=== PATIENT | female | born 1955 ===

== ENCOUNTER 2018-05-25 15:30 | Emergency (ER) | payer OTHER ==
[2018-05-25 16:09] VITALS: BMI 25.9
--- NOTE | 2018-05-25 16:11 | C.PDOC ---
History Of Present Illness 63 year old female presents to the emergency department with complaints of a "serious headache" and associated dizziness. Patient reports that her headache is waxing and waning, and she has balancing issues as a result. She states that she was seen by Dr. Lane, and was given medication to treat for high cholesterol. Patient also reports numbness and cramping to her fingers and her legs. She denies chest pain, nausea, vomiting, fever, and chills. Time Seen by Provider: 05/25/18 16:08 Chief Complaint (Nursing): Dizziness/Lightheaded History Per: Patient History/Exam Limitations: no limitations Onset/Duration Of Symptoms: Days Current Symptoms Are (Timing): Still Present Past Medical History Reviewed: Historical Data, Nursing Documentation, Vital Signs Vital Signs: Last Vital Signs Temp 98.8 F 05/25/18 15:55 Pulse 77 05/25/18 15:55 Resp 17 05/25/18 15:55 BP 144/83 05/25/18 15:55 Pulse Ox 96 05/25/18 15:55 - Medical History PMH: Arthritis, Back Problems (HERNIATED DISCS), Hypercholesterolemia Surgical History: No Surg Hx Family History: States: No Known Family Hx - Social History Hx Alcohol Use: Yes Hx Substance Use: No - Immunization History Hx Tetanus Toxoid Vaccination: No Hx Influenza Vaccination: No Hx Pneumococcal Vaccination: No Review Of Systems Except As Marked, All Systems Reviewed And Found Negative. Constitutional: Negative for: Fever, Chills Gastrointestinal: Negative for: Nausea, Vomiting Neurological: Positive for: Weakness, Numbness, Headache, Dizziness Physical Exam - Physical Exam Appears: Non-toxic, No Acute Distress Skin: Warm, Dry Head: Atraumatic, Normacephalic Eye(s): bilateral: Normal Inspection, PERRL, EOMI Neck: Normal, Supple Chest: Symmetrical, No Tenderness Cardiovascular: Rhythm Regular, No Murmur Respiratory: No Rales, No Rhonchi, No Wheezing Gastrointestinal/Abdominal: Soft, No Tenderness, No Guarding, No Rebound Extremity: Normal ROM (all extremities), No Tenderness Pulses: Left Dorsalis Pedis: Normal, Right Dorsalis Pedis: Normal Neurological/Psych: Oriented x3, Normal Speech, Normal Cognition, Normal Motor, Normal Sensation, Normal Reflexes ED Course And Treatment - Laboratory Results Result Diagrams: 05/25/18 16:51 05/25/18 16:51 ECG: Interpreted By Me, Viewed By Me ECG Rhythm: Sinus Rhythm ECG Interpretation: Normal Interpretation Of ECG: No STEMI Rate From EC O2 Sat by Pulse Oximetry: 96 (RA) Pulse Ox Interpretation: Normal Medical Decision Making Medical Decision Making: Plan: CT Head EKG CMP TSH CBC Antivert 12.5mg PO Urinalysis EK, NSR, No stemi ~1800 appreciate consult w/ radiologist: reccomends CTA and MRI for w/u of inflammatory changes ?MS. CTA ordered 1899 Pt notes she would to think about getting a CTA due to insurance issue. I endorsed possibility of permanent and or disability. She notes understanding of potential and or disability if she does not get further studies done. She notes she would like to think about it more though. 0 squams in urine and pt w/ out dysuria, abd pain or flank pain or urgency / frequency: asymptomatic bacturia, no indication for rx at this time given asymptomatic and contaminated sample. Pt endorsed she does not want to stay for CTA OR MRI OR further workup. I endorsed to the patient the possibility of and or permanent disability due to incomplete workup for inflammation in the brain for ?MS. She notes understanding and states that she needs to find out her insurance status and does not think that she has MS or any other disease. Given pts AOx3 and good capacity as well as informed decision making, pt signed out AMA. Disposition - Disposition Disposition: AGAINST MEDICAL ADVICE Disposition Time: 19:36 Condition: FAIR Forms: [facility] (U[place]bek) - Clinical Impression Clinical Impression: Abnormal CT of brain, Dizzy - Scribe Statement The provider has reviewed the documentation as recorded by the Scribe (Emile Schulte) Provider Attestation: All medical record entries made by the Scribe were at my direction and personally dictated by me. I have reviewed the chart and agree that the record accurately reflects my personal performance of the history, physical exam, medi mathew decision making, and the department course for this patient. I have also personally directed, reviewed, and agree with the discharge instructions and disposition.
[2018-05-25 16:54] LABS: BASO % 0.2 % (0.0-2.0); EOS # 0.1 K/uL (0.0-0.7); EOS % 0.6 % (0.0-4.0); HEMOGLOBIN 11.5 g/dL (11.0-16.0); LYMPH # 2.5 K/uL (1.0-4.3); LYMPH % 25.7 % (20.0-40.0); MEAN CELL VOLUME 84.6 fL (81.0-99.0); MEAN CORPUSCULAR HEMOGLOBIN 28.4 pg (27.0-31.0); MEAN CORPUSCULAR HGB CONC 33.5 g/dL (33.0-37.0); MEAN PLATELET VOLUME 9.2 fL (7.2-11.7); MONO # 0.5 K/uL (0.0-0.8); MONO % 5.1 % (0.0-10.0); NEUT # 6.7 K/uL (1.8-7.0); NEUT % 68.4 % (50.0-75.0); NRBC % 0.1 % (0.0-2.0); RBC 4.06 Mil/uL (3.80-5.20); RED CELL DISTRIBUTION WIDTH 13.7 % (11.5-14.5); WHITE BLOOD COUNT 9.8 K/uL (4.8-10.8)
[2018-05-25 17:11] LABS: ALB/GLOB RATIO 1.3 (1.0-2.1); ALBUMIN 4.3 g/dL (3.5-5.0); ALT/SGPT 23 U/L (9-52); AST/SGOT 30 U/L (14-36); BLOOD UREA NITROGEN 13 mg/dL (7-17); CALCIUM 9.2 mg/dl (8.6-10.4); GFR NON-AFRICAN AMERICAN > 60
[2018-05-25 17:13] VITALS: RESP 16
--- NOTE | 2018-05-25 17:25 | CT ---
Date of service: 05/25/2018 PROCEDURE: CT HEAD WITHOUT CONTRAST. HISTORY: dizzy COMPARISON: None available. TECHNIQUE: Axial computed tomography images were obtained through the head/brain without intravenous contrast. Radiation dose: Total exam DLP = 1099.55 mGy-cm. This CT exam was performed using one or more of the following dose reduction techniques: Automated exposure control, adjustment of the mA and/or kV according to patient size, and/or use of iterative reconstruction technique. FINDINGS: HEMORRHAGE: No intracranial hemorrhage. BRAIN: Confluent areas of low-attenuation seen within the right posterior frontal subcortical white matter as demonstrated on series 4 images 24 through 33. This is nonspecific and may represent age-indeterminate ischemic change versus sequelae of acute infectious and or inflammatory changes versus underlying neoplasm versus additional etiology. Correlation with MRI would be helpful for further evaluation if clinically indicated. Ventricles Unremarkable. No hydrocephalus. CALVARIUM: Unremarkable. PARANASAL SINUSES: Unremarkable as visualized. No significant inflammatory changes. MASTOID AIR CELLS: Unremarkable as visualized. No inflammatory changes. OTHER FINDINGS: None. IMPRESSION: Confluent areas of low-attenuation seen within the right posterior frontal subcortical white matter as demonstrated on series 4 images 24 through 33. This is nonspecific and may represent age-indeterminate ischemic change versus sequelae of acute infectious and or inflammatory changes versus underlying neoplasm versus additional etiology. Correlation with MRI would be helpful for further evaluation if clinically indicated.
[2018-05-25 17:31] LABS: SQUAMOUS EPITHIAL 8 /hpf (0-5); URINE BACTERIA RARE (<OCC); URINE BILIRUBIN NEGATIVE (NEGATIVE); URINE BLOOD NEGATIVE (NEGATIVE); URINE CLARITY Clear (Clear); URINE COLOR Straw (YELLOW); URINE GLUCOSE (UA) NORMAL (Normal); URINE LEUKOCYTE ESTERASE TRACE Leu/uL (Negative); URINE PROTEIN NEGATIVE (NEGATIVE); URINE UROBILINOGEN NORMAL mg/dL (0.2-1.0)
[2018-05-25] MEDS ORDERED: Iodixanol 320 MG/ML 100 ML BOTTLE IV ONE (18:18)
[2018-05-25 18:29] VITALS: O2SAT 96
[2018-05-25 19:43] VITALS: BP 153/65; PULSE 74; TEMP 98.3
--- NOTE | 2018-05-26 12:11 | CARD ---
APPROVED REPORT Date of service: 05/25/2018 EKG Measurement Heart [id number] <Conclusion> Normal sinus rhythm Moderate voltage criteria for LVH, may be normal variant Borderline ECG
== END 2018-05-25 19:42 | disposition left against medical advice (07) ==
LOC: C.ER 15:30
DX: R42 Dizziness and giddiness (principal); R93.0 Abnormal findings on diagnostic imaging of skull and head, not elsewhere classified